=== PATIENT | male | born 1945 | race African-American/Black ===

== ENCOUNTER 2016-09-28 15:27 | Outpatient (CLI) | payer MEDICARE ==
[2016-09-30 02:30] LABS: Chlamydia by PCR Not Detected (NotDetected); GC by PCR Not Detected (NotDetected)
== END 2016-09-28 15:28 | disposition home or self-care (01) ==
LOC: LABLEX 15:27
PROVIDERS: ATTEND Family Medicine
DX: N45.1 Epididymitis (principal)
CPT/HCPCS: 87491; 87591

== ENCOUNTER 2017-02-18 09:49 | Emergency (ER) | payer MEDICARE ==
[2017-02-18] MEDS ORDERED: Ketorolac Tromethamine 30 MG/ML VIAL ONE (10:22)
== END 2017-02-18 10:47 | disposition home or self-care (01) ==
LOC: BURERS 09:49
DX: M10.9 Gout, unspecified (principal); F17.210 Nicotine dependence, cigarettes, uncomplicated; E78.5 Hyperlipidemia, unspecified; I10 Essential (primary) hypertension
CPT/HCPCS: 96372; J1885